=== PATIENT | female | born 1980 | race Caucasian/White ===

== ENCOUNTER 2016-12-05 18:19 | Inpatient (IN) | payer BC, MEDICAID, OTHER ==
--- NOTE | 2016-12-05 20:21 | ED ---
Psych HPI - General Source: patient, RN notes reviewed Mode of arrival: ambulatory <Meche Hardy - Last Filed: 12/05/16 20:19> <Anup Encinas - Last Filed: 12/05/16 22:39> - General Chief Complaint: Psychiatric Symptoms Stated Complaint: MENTAL HEALTH Time Seen by Provider: 12/05/16 20:14 - History of Present Illness Initial Comments: 36-year-old female presents to the emergency department with a chief complaint of what appears to be a manic type episode. Patient had been manic per the family. They state that she is trying at home. Patient states that she has "seen all her teachers and has gained all her knowledge. She states that she is trying to help her family. The patient is talking in circles. Patient denies any suicidal or homicidal ideation. Patient denies any medication taking her any health concerns at this time.Patient denies any recent fever, chills, shortness of breath, chest pain, back pain, abdominal pain, nausea vomiting, numbness or tingling, dysuria or hematuria, constipation or diarrhea, headaches or visual changes, or any other current symptoms. (Mcehe Hardy) - Related Data Home Medications Medication Instructions Recorded Confirmed No Known Home Medications [No 02/11/15 12/05/16 Known Home Medications] Allergies Allergy/AdvReac Type Severity Reaction Status Date / Time No Known Allergies Allergy Verified 12/05/16 20:13 Review of Systems ROS Other: All systems not noted in ROS Statement are negative. <Meche Hardy - Last Filed: 12/05/16 20:19> ROS Other: All systems not noted in ROS Statement are negative. <Anup Encinas - Last Filed: 12/05/16 22:39> ROS Statement: Those systems with pertinent positive or pertinent negative responses have been documented in the HPI. Past Medical History Past Medical History: No Reported History Additional Past Medical History / Comment(s): cervical cysts History of Any Multi-Drug Resistant Organisms: None Reported Past Surgical History: Hernia Repair Additional Past Surgical History / Comment(s): CERVICAL CYSTS REMOVED, Past Psychological History: Depression Smoking Status: Current every day smoker Past Alcohol Use History: Occasional Past Drug Use History: Marijuana <Meche Hardy - Last Filed: 12/05/16 20:19> General Exam Limitations: no limitations General appearance: alert, in no apparent distress ENT exam: Present: normal exam, mucous membranes moist Neck exam: Present: normal inspection. Absent: tenderness, meningismus, lymphadenopathy Respiratory exam: Present: normal lung sounds bilaterally. Absent: respiratory distress, wheezes, rales, rhonchi, stridor Cardiovascular Exam: Present: regular rate, normal rhythm, normal heart sounds. Absent: systolic murmur, diastolic murmur, rubs, gallop, clicks Neurological exam: Present: alert, oriented X3, CN II-XII intact, normal gait, motor sensory deficit, reflexes normal Psychiatric exam: Present: manic Skin exam: Present: warm, dry, intact, normal color. Absent: rash <Meche Hardy - Last Filed: 12/05/16 20:19> Medical Decision Making <Meche Hardy - Last Filed: 12/05/16 20:19> <Anup Encinas - Last Filed: 12/05/16 22:39> - Medical Decision Making 36-year-old male presents emergency department with concern for manic episode. Patient at this time does not appear to be suffering acute medical emergencies. Patient does have a history of depression. This time she is currently evaluated by psychiatry. (Meche Hardy) I receive this patient has a sign out. The patient has been evaluated by behavioral health and they are going to admit her here. Patient requested medication for symptoms and Geodon is ordered (Anup Encinas) - Lab Data Lab Results 12/05/16 Range/Units 20:35 Urine Opiates Screen Not Detected (NotDetected) Ur Oxycodone Screen Not Detected (NotDetected) Urine Methadone Screen Not Detected (NotDetected) Ur Propoxyphene Screen Not Detected (NotDetected) Ur Barbiturates Screen Not Detected (NotDetected) U Tricyclic Antidepress Not Detected (NotDetected) Ur Phencyclidine Scrn Not Detected (NotDetected) Ur Amphetamines Screen Not Detected (NotDetected) U Methamphetamines Scrn Not Detected (NotDetected) U Benzodiazepines Scrn Not Detected (NotDetected) Urine Cocaine Screen Not Detected (NotDetected) U Marijuana (THC) Screen Detected H (NotDetected) Disposition <Meche Hardy - Last Filed: 12/05/16 20:19> <Anup Encinas - Last Filed: 12/05/16 22:39> Clinical Impression: Mood disorder Disposition: ADMITTED IP TO THIS HOSP Condition: Fair
[2016-12-05] MEDS ORDERED: LORazepam 1 MG TAB PO STA (20:38)
[2016-12-05] MEDS ORDERED: ZIPRASIDONE 20 MG CAP PO STA (22:34)
[2016-12-06] MEDS ORDERED: ACETAMINOPHEN TAB 325 MG TAB PO PRN (00:18)
[2016-12-06] MEDS ORDERED: MAGNESIUM HYDROXIDE 2,400 MG/10 ML CUP PO PRN (00:18)
[2016-12-06] MEDS ORDERED: MAG HYDROX/AL HYDROX/SIMETH 30 ML CUP PO PRN (00:18)
[2016-12-06] MEDS ORDERED: ZIPRASIDONE 20 MG VIAL IM PRN (00:18)
[2016-12-06] MEDS ORDERED: LORazepam 2 MG/ML SYRINGE IM PRN (00:22)
[2016-12-06] MEDS: NICOTINE 14MG/24HR PATCH TRANSDERM SCH (10:44)
--- NOTE | 2016-12-06 14:35 | P.HP ---
Psychiatric H&P - . H&P Date: 12/06/16 History & Physical: IDENTIFYING DATA: She is a 36-year-old female who presented voluntarily to the psychiatric unit. HISTORY OF PRESENT ILLNESS: A friend brought her to the ED concerned about her mental health. Lazara told the EPS nurse that she is stressed out and was "reaching out" to people in her community to make them aware" of her daughter's problems at school and her 's legal issues. According to the friend she was disruptive in public; dancing and playing music in her neighborhood. She built a "shrine" on her porch and called friends and family, e.g. clergy, teachers, past teachers, [employer] club members. for assistance. In the ED she was hyperverbal, demonstrated racing thoughts and increased psychomotor activity. Her friend reported that over the last 2 weeks she was sleeping excessively and little to no motivation but since Tuesday12/09/2016 she has not slept and on a "mission" to educate others about her plight. During our interview she denied problems or concerns. She stated that she hasn' t slept for several days but does not feel tired. She was not preoccupied about her daughter or . She mentioned in passing that her had some legal problems. Over the last 4 days she has slept little and did not sleep for the 2 days prior to admission. She admits to being more talkative and having more thoughts and ideas. Her behavior is a clear and distinct change from her usual behavior. She denied excessive involvement in activities that have a high probability of painful consequences such as buying sprees, sexual indiscretions or "foolish" business ventures. She denied psychotic symptoms such as auditory or visual hallucinations, ideas reference, thought insertion, thought or thought control. She denied use of alcohol or drugs with the exception of marijuana. PAST PSYCHIATRIC HISTORY: She denied prior psychiatric hospitalization she denied that she had received past mental health services.. PAST MEDICAL HISTORY: She denied history of medical problems. ALLERGIES: No known ALLERGIES. SUBSTANCE USE HISTORY: She smokes marijuana "occasionally" she described passive history of "daily use". She denied use of other drugs such as heroin, cocaine, crack cocaine, methamphetamine, MDMA, hallucinogenic's and oral opioid pain medicines, sedatives and hypnotics.. FAMILY PSYCHIATRIC/SUBSTANCE USE HISTORY: She states her brother has "mental problems". She is unaware of his diagnosis.. LEGAL HISTORY: He denied a history of legal problems.. SOCIAL HISTORY: She is born and raised by an intact family. She has 1 older brother and sister. Her parents are . Her mother last year while living with her sister in [place]. She is angry with her brother because he did not arrange a services. When she arrived [place] he had given away her mother's possessions and donate her mother's body to a medical school. She has 1 daughter, age 10, out of wedlock. She's been for 4 years; she and her have lived together for 8 years. She graduated high school and attended a General acute hospital college. She is currently unemployed and living with her in [facility]. They moved from [place] to [place] 4 years ago. She described close and supportive relationship with her . Her 's only legal problems are traffic violations. MENTAL STATUS EXAM: She presented as a casually dressed and groomed 36-year-old woman who looked younger than his stated age. She had a normal posture. She maintained eye contact and attended to the interview. She had no distinguishing features or prominent physical abnormalities. She had a bright almost elated facial expression. She was alert and oriented to person, place and time. She was restless and distractible. She had pressured speech and flight of ideas. Her affect was elevated and at times inappropriate. She denied suicidal ideation or wishes. She denied homicidal ideation. She denied depressive cognitions such as hopelessness, helplessness or worthlessness. She denied obsessions or ruminations. She did not express ideas reference or paranoid ideation. Her thinking was abstract and her associations were coherent and logical. She did not demonstrate clang associations, neologisms or perseveration. She denied hallucinations and did not appear to be responding to internal stimuli. STRENGTHS: Stable and supportive marriage, stable housing, stable income, community support WEAKNESSES: New-onset of mood disorder, family history of mental illness. IMPRESSION: She is a 36-year-old woman who does not have a history of a mental health problem. She presented with signs and symptoms of hypomania that developed following a period of depression. There is no evidence of psychotic symptoms. The change is not related to medical illnesses or the abuse of drugs or alcohol. She should best be treated inpatient basis with a combination of psychopharmacology and multimodal therapy. PRINCIPLE DIAGNOSIS: Bipolar 2 disorder RECOMMENDATION: Continue treatment on the inpatient psychiatric unit. We discussed treatment with mood stabilizers including lithium, Depakote, Lamictal and various antipsychotics. She consented to a trial of Abilify and restart Abilify 5 mg daily. Evaluate clinical clinical status response to treatment on a daily basis. Obtain lateral information from her . Encourage participation in therapeutic groups and activities. Allergies Allergy/AdvReac Type Severity Reaction Status Date / Time No Known Allergies Allergy Verified 12/05/16 20:13 Vital Signs Temp 96.9 F L 12/06/16 00:24 Pulse 108 H 12/06/16 00:24 Resp 16 12/06/16 00:24 BP 147/83 12/06/16 00:24 Pulse Ox 99 12/06/16 00:00 Intake & Output 12/05/16 12/06/16 12/06/16 18:59 06:59 18:59 Weight 63.503 kg Laboratory Last Values Urine HCG, Qual Not Detected (Not Detectd) 12/05/16 20:35 Urine Opiates Screen Not Detected (NotDetected) 12/05/16 20:35 Ur Oxycodone Screen Not Detected (NotDetected) 12/05/16 20:35 Urine Methadone Screen Not Detected (NotDetected) 12/05/16 20:35 Ur Propoxyphene Screen Not Detected (NotDetected) 12/05/16 20:35 Ur Barbiturates Screen Not Detected (NotDetected) 12/05/16 20:35 U Tricyclic Antidepress Not Detected (NotDetected) 12/05/16 20:35 Ur Phencyclidine Scrn Not Detected (NotDetected) 12/05/16 20:35 Ur Amphetamines Screen Not Detected (NotDetected) 12/05/16 20:35 U Methamphetamines Scrn Not Detected (NotDetected) 12/05/16 20:35 U Benzodiazepines Scrn Not Detected (NotDetected) 12/05/16 20:35 Urine Cocaine Screen Not Detected (NotDetected) 12/05/16 20:35 U Marijuana (THC) Screen Detected (NotDetected) H 12/05/16 20:35 12/06/16 08:33 12/06/16 14:12
[2016-12-06] MEDS: LORazepam 1 MG TAB PO PRN ×2 (14:53→23:45)
--- NOTE | 2016-12-06 16:02 | P.CONS ---
History of Present Illness - Reason for Consult Consult date: 12/06/16 Medical management - History of Present Illness This is a 36-year-old female. Her primary care physician is Dr. Montaño. She has a past medical history for cervical cyst, depression, tobacco use and dependence. Patient presented to [facility] with manic phase. She is history that she has had similar symptoms when she suffered from depression was placed on Prozac. She states she does get chest pain when she takes Prozac. She has also had same symptoms when her mother and father . She gives history that she thinks she and her need to get a divorce and that is why she feels she is having this is symptoms now. Urine drug screen was positive for marijuana. Urine hCG was negative. Review of Systems All systems: negative Constitutional: Denies chills, Denies fever Eyes: denies blurred vision, denies pain Ears, nose, mouth and throat: Denies headache, Denies sore throat Cardiovascular: Denies chest pain, Denies shortness of breath Respiratory: Denies cough Gastrointestinal: Denies abdominal pain, Denies diarrhea, Denies nausea, Denies vomiting Genitourinary: Denies dysuria, Denies hematuria Musculoskeletal: Denies myalgias Integumentary: Denies pruritus, Denies rash Neurological: Denies numbness, Denies weakness Psychiatric: Reports confusion, Reports depression, Reports difficulty concentrating, Reports mood swings, Denies anxiety Endocrine: Denies fatigue, Denies weight change Past Medical History Past Medical History: No Reported History Additional Past Medical History / Comment(s): cervical cysts, seasonal ALLERGIES History of Any Multi-Drug Resistant Organisms: None Reported Past Surgical History: Hernia Repair Additional Past Surgical History / Comment(s): CERVICAL CYSTS REMOVED, Past Psychological History: Depression Smoking Status: Current every day smoker Past Alcohol Use History: Occasional Additional Past Alcohol Use History / Comment(s): Patient is a smoker of one pack per day since she was 19 years of age. She states she drinks alcohol on a rare basis. She states she tried marijuana but it doesn't work and she does not plan to use it. Past Drug Use History: Marijuana - Past Family History Father Additional Family Medical History / Comment(s): Patient's father from pancreatic cancer. Mother Additional Family Medical History / Comment(s): Mother has but patient does not know any details of this. Brother(s) Additional Family Medical History / Comment(s): Patient has 1 brother with no major medical problems. Sister(s) Additional Family Medical History / Comment(s): Patient has one sister that is living. One sister as a baby. Daughter(s) Additional Family Medical History / Comment(s): Patient has one 10-year-old daughter with no major medical problems. Medications and Allergies Home Medications Medication Instructions Recorded Confirmed Type No Known Home Medications [No 02/11/15 12/05/16 History Known Home Medications] Allergies Allergy/AdvReac Type Severity Reaction Status Date / Time No Known Allergies Allergy Verified 12/05/16 20:13 Physical Exam Vitals: Vital Signs Temp Pulse Pulse Resp BP BP Pulse Ox 12/06/16 00:24 96.9 F L 108 H 16 147/83 12/06/16 00:00 98.4 F 110 H 18 135/83 99 Intake and Output 12/05/16 12/06/16 12/06/16 22:59 06:59 14:59 Other: Weight 63.503 kg Gen: This is a 36-year-old female. She is cooperative. Noted flight of ideas and difficulty concentrating. HEENT: Head is atraumatic, normocephalic. Pupils equal, round. Sclerae is anicteric. NECK: Supple. No JVD. No lymphadenopathy. No thyromegaly. LUNGS: Clear to auscultation. No wheezes or rhonchi. No intercostal retractions. HEART: Regular rate and rhythm. No murmur. ABDOMEN: Soft. Bowel sounds are present. No masses. No tenderness. EXTREMITIES: No pedal edema. No calf tenderness. NEUROLOGICAL: Patient is awake, alert and oriented x3. Cranial nerves 2 through 12 are grossly intact. Assessment and Plan Plan: 1. Bipolar disorder. Patient admitted to the mental health unit. Continue current plan of care. 2. Tobacco use and dependence. Patient states she is unable to take Chantix, nicotine patch, nicotine gum. 3. Seasonal ALLERGIES stable. 4. Cervical cyst, stable. Impression and plan of care have been directed as dictated by the signing physician. Trish Coker nurse practitioner acting as scribe for signing physician. Time with Patient: Greater than 30
[2016-12-07] MEDS: LORazepam 1 MG TAB PO PRN ×2 (06:52→19:34)
[2016-12-07] MEDS ORDERED: ARIPiprazole 5 MG TAB PO SCH (09:00)
[2016-12-07] MEDS: NICOTINE 14MG/24HR PATCH TRANSDERM SCH (09:35)
[2016-12-07 10:23] LABS: Basophils # (A) 0.1 k/uL (0-0.2); Basophils % (A) 1 %; CHCM 34.3; Eosinophils # (A) 0.1 k/uL (0-0.7); Eosinophils % (A) 1 %; HCT 40.7 % (34.0-46.0); HDW 2.53; HGB 13.5 gm/dL (11.4-16.0); Luc # (Auto) 0.05; Luc % (Auto) 1; Lymphocytes # (A) 1.2 k/uL (1.0-4.8); Lymphocytes % (A) 12 %; MCH 30.1 pg (25.0-35.0); MCHC 33.2 g/dL (31.0-37.0); MCV 90.9 fL (80.0-100.0); Mean Platelet Volume 7.9; Monocytes # (A) 0.6 k/uL (0-1.0); Monocytes % (A) 6 %; Neutrophils # (A) 8.1 k/uL (1.3-7.7); Neutrophils % (A) 81 %; RBC 4.48 m/uL (3.80-5.40); RDW 12.5 % (11.5-15.5)
[2016-12-07 10:57] LABS: ALT 44 U/L (9-52); AST 23 U/L (14-36); Alkaline Phosphatase 56 U/L (38-126); Anion Gap 12 mmol/L; Blood Urea Nitrogen 7 mg/dL (7-17); Carbon Dioxide 27 mmol/L (22-30); Chloride 104 mmol/L (98-107); Glucose 105 mg/dL (74-99); Non-African American GFR(MDRD) >60 (>60 ml/min/1.73 sqM); Potassium 3.8 mmol/L (3.5-5.1); Sodium 143 mmol/L (137-145); Total Bilirubin 0.6 mg/dL (0.2-1.3); Total Protein 7.9 g/dL (6.3-8.2)
--- NOTE | 2016-12-07 13:46 | P.PN ---
Progress Note - Text SUBJECTIVE: Lazara received her first dose of Abilify 5 mg this morning and complained of dizziness, lightheadedness, shortness of breath and difficulties with her balance. She talked more about her concerns. She is thinking of with her because they have been having relationship difficulties and he is unwilling to meet with a marital counselor. She stated that in the past she has paid his child support because she was afraid that he would be arrested for nonpayment. He remains delinquent on child support payments and does not respond to her pleas to make good on his responsibilities. She is unhappy living in [facility] because she is unable to find employment and her supportive friends and family live in [facility]. Her 10-year-old daughter is currently living with her father in [facility]. She feels comfortable with this arrangement temporarily. OBJECTIVE: She presented as sedated appearing 36-year-old woman who was pleasant on approach. She made eye eye contact and attended to interview. She had a blunted facial expression. She was alert and oriented to person, place and time. She was not restless and displayed no abnormal movements. Her gait was slow and unsteady. She demonstrated pressured speech and some flight of ideas. Her affect was bright almost elated. She denied suicidal ideation or wishes. She denied homicidal ideation. She denied feeling hopeless or helpless. She did not express ideas reference or paranoid ideation. Her thinking was abstract and associations were coherent and goal directed. She did not demonstrate clang associations or neologisms. She denied hallucinations and didn't appear to be responding to internal stimuli. ASSESSMENT: She is experiencing distressing side effects from 5 mg dose of Abilify. She continues to have symptoms of hypomania but she is less hyperverbal and demonstrates less flight of ideas. PLAN: Discontinue Abilify. Begin Seroquel 50 mg at bedtime and titrated according to tolerance and clinical effect. Continue participation in therapeutic groups and activities. Evaluate clinical status response to treatment daily basis.
[2016-12-07] MEDS: cloNIDine HCL 0.1 MG TAB PO PRN (14:39)
[2016-12-07] MEDS ORDERED: QUEtiapine 50 MG TAB PO SCH (21:00)
[2016-12-08 05:36] VITALS: RESP 18
[2016-12-08] MEDS: NICOTINE 14MG/24HR PATCH TRANSDERM SCH (08:40)
--- NOTE | 2016-12-08 15:00 | P.PN ---
Progress Note - Text SUBJECTIVE: Lazara reported restful sleep and denied side effects to the initial dose of Seroquel. She spoke with her yesterday and talked about her expectations if they are to remained . She requests to be discharged and agreed to follow up with the mental health. OBJECTIVE: She was neatly dressed and groomed. She made eye contact and attended to the interview. She had a bright facial expression. She showed no abnormality of psychomotor activity and no abnormal movements. Her affect was bright, stable and appropriate. Her speech was rapid but not pressured. She did not demonstrate flight of ideas. She denied suicidal or ideation or wishes. She denied depressive cognitions such as hopelessness, helplessness or worthlessness. Her thinking was abstract and associations were coherent and logical. She denied hallucinations and did not appear to be responding to internal stimuli. ASSESSMENT: She is much improved from admission with a marked decrease and hypomania. PLAN: Increase Seroquel to 100 mg at bedtime, social work to schedule outpatient mental health services, discharge 12/09/2016.
[2016-12-08] MEDS ORDERED: QUEtiapine 100 MG TAB PO SCH (21:00)
[2016-12-08] MEDS: cloNIDine HCL 0.1 MG TAB PO PRN (22:12)
[2016-12-09 00:36] VITALS: BP 152/101; PULSE 110; TEMP 97.6
[2016-12-09] MEDS: NICOTINE 14MG/24HR PATCH TRANSDERM SCH (10:43)
--- NOTE | 2016-12-09 11:31 | P.DS ---
Providers Date of admission: 12/05/16 22:41 Attending physician: Evan Nielsen MD Consults: 12/06/16 00:18 Consult Physician Routine Consulting Provider: Twila Rudolph Consult Reason/Comments: h&p and medical follow-up Do you want consulting provider notified?: Yes, Notify in am Primary care physician: Linwood Patricia - Discharge Diagnosis(es) (1) Hypomania Current Visit: Yes Status: Resolved Priority: High (2) Bipolar II disorder Current Visit: Yes Status: Chronic Priority: Low Hospital Course: She is a 36-year-old female who presented voluntarily to the psychiatric unit. A friend brought her to the ED concerned about her mental health. Lazara told the EPS nurse that she is stressed out and was "reaching out" to people in her community to make them aware" of her daughter's problems at school and her 's legal issues. According to the friend she was disruptive in public; dancing and playing music in her neighborhood. She built a "shrine" on her porch and called friends and family, e.g. clergy, teachers, past teachers, [employer] club members. for assistance. In the ED she was hyperverbal, demonstrated racing thoughts and increased psychomotor activity. Her friend reported that over the last 2 weeks she was sleeping excessively and little to no motivation but since Tuesday12/09/2016 she has not slept and on a "mission" to educate others about her plight. During our interview she denied problems or concerns. She stated that she hasn' t slept for several days but does not feel tired. She was not preoccupied about her daughter or . She mentioned in passing that her had some legal problems. Over the last 4 days she has slept little and did not sleep for the 2 days prior to admission. She admits to being more talkative and having more thoughts and ideas. Her behavior is a clear and distinct change from her usual behavior. She denied excessive involvement in activities that have a high probability of painful consequences such as buying sprees, sexual indiscretions or "foolish" business ventures. She denied psychotic symptoms such as auditory or visual hallucinations, ideas reference, thought insertion, thought or thought control. She denied use of alcohol or drugs with the exception of marijuana. She denied prior psychiatric hospitalization she denied that she had received past mental health services. She had a bright almost elated facial expression. She was alert and oriented to person, place and time. She was restless and distractible. She had pressured speech and flight of ideas. Her affect was elevated and at times inappropriate. She denied suicidal ideation or wishes. She denied homicidal ideation. She denied depressive cognitions such as hopelessness, helplessness or worthlessness. She denied obsessions or ruminations. She did not express ideas reference or paranoid ideation. Her thinking was abstract and her associations were coherent and logical. She did not demonstrate clang associations, neologisms or perseveration. She denied hallucinations and did not appear to be responding to internal stimuli. We admitted her voluntarily to the psychiatric unit under the care of this keno writer. Provided a biopsychosocial assessment. The independent beauty consultant wort extractor completed the initial physical exam and medical history. The medical diagnoses include tobacco use disorder and seasonal allergies. She demonstrated signs and symptoms of hypomania with markedly elevated mood, restlessness, pressured speech and flight of ideas. She did not express psychotic symptoms such as auditory or visual hallucinations, ideas reference, thought insertion, thought broadcasting or thought control. She was "afraid" of starting lithium, Depakote or Lamictal. She agreed to a trial of Abilify but experienced shortness of breath and racing thoughts with a 5 mg dose. She showed a reduction in hypomanic symptoms with quetiapine at a dose of 100 mg at bedtime. As her mood improved she revealed poor concerns with her marriage and requested referral for outpatient counseling. At the time of discharge she showed no signs of pili or hypomania. She was not psychotic. She denied side effects to the quetiapine. Social work arranged for outpatient mental health services in [facility]. Patient Condition at Discharge: Good Plan - Discharge Summary New Discharge Prescriptions: Nicotine 14Mg/24Hr Patch [Habitrol] 1 patch TRANSDERM DAILY 14 Days QUEtiapine [SEROquel] 100 mg PO HS 30 Days Discharge Medication List Nicotine 14Mg/24Hr Patch [Habitrol] 1 patch TRANSDERM DAILY 14 Days 12/09/16 [Rx ] QUEtiapine [SEROquel] 100 mg PO HS 30 Days 12/09/16 [Rx] Follow up Appointment(s)/Referral(s): Janusz Oseguera [Outside] - 12/13/16 11:00 am ([place] ) Linwood Patricia MD [Primary Care Provider] - 1-2 days Patient Instructions/Handouts: How to Stop Smoking (GEN) Discharge Disposition: HOME SELF-CARE
== END 2016-12-09 11:32 | disposition home or self-care (01) | DRG 885 ==
LOC: EC 18:19 → 3MHU 22:41
PROVIDERS: ADMIT Psychiatry & Neurology Psychiatry; ATTEND Psychiatry & Neurology Psychiatry
DX: F31.81 Bipolar II disorder (principal); F17.200 Nicotine dependence, unspecified, uncomplicated
CPT/HCPCS: 80053; 80306; 81025; 82075; 84443; 85025; 93005; 99285

== ENCOUNTER 2016-12-13 15:57 | Inpatient (IN) | payer MEDICAID, OTHER ==
--- NOTE | 2016-12-13 16:28 | ED ---
General Adult HPI - General Chief complaint: Psychiatric Symptoms Stated complaint: MENTAL HEALTH Time Seen by Provider: 12/13/16 16:03 Source: patient, EMS, RN notes reviewed Mode of arrival: EMS Limitations: no limitations - History of Present Illness Initial comments: Patient 36-year-old female who presents emergency room today by EMS, with chief complaint of wanting mental health evaluation. She does not that she was recently discharged from through us. States she does have a counselor/ therapist that she sees. States that has been having increased racing thoughts. Denies any thoughts of hurting herself or others. Denies any other physical complaints currently. Patient denies any recent fever, chills, shortness of breath, chest pain, back pain, abdominal pain, nausea or vomiting, numbness or tingling, dysuria or hematuria, constipation or diarrhea, headaches or visual changes, or any other complaints. - Related Data Home Medications Medication Instructions Recorded Confirmed Loratadine [Alavert] 10 mg PO DAILY PRN 12/13/16 12/13/16 Previous Rx's Medication Instructions Recorded Nicotine 14Mg/24Hr Patch [Habitrol] 1 patch TRANSDERM DAILY 14 Days 12/09/16 QUEtiapine [SEROquel] 100 mg PO HS 30 Days 12/09/16 Allergies Allergy/AdvReac Type Severity Reaction Status Date / Time No Known Allergies Allergy Verified 12/13/16 16:40 Review of Systems ROS Statement: Those systems with pertinent positive or pertinent negative responses have been documented in the HPI. ROS Other: All systems not noted in ROS Statement are negative. Past Medical History Past Medical History: No Reported History Additional Past Medical History / Comment(s): cervical cysts, seasonal ALLERGIES History of Any Multi-Drug Resistant Organisms: None Reported Past Surgical History: Hernia Repair Additional Past Surgical History / Comment(s): CERVICAL CYSTS REMOVED, Past Psychological History: Depression Smoking Status: Current every day smoker Past Alcohol Use History: Occasional Additional Past Alcohol Use History / Comment(s): Patient is a smoker of one pack per day since she was 19 years of age. She states she drinks alcohol on a rare basis. She states she tried marijuana but it doesn't work and she does not plan to use it. Past Drug Use History: Marijuana - Past Family History Father Additional Family Medical History / Comment(s): Patient's father from pancreatic cancer. Mother Additional Family Medical History / Comment(s): Mother has but patient does not know any details of this. Brother(s) Additional Family Medical History / Comment(s): Patient has 1 brother with no major medical problems. Sister(s) Additional Family Medical History / Comment(s): Patient has one sister that is living. One sister as a baby. Daughter(s) Additional Family Medical History / Comment(s): Patient has one 10-year-old daughter with no major medical problems. General Exam - General Exam Comments Initial Comments: General: The patient is awake and alert, in no distress, and does not appear acutely ill. Eye: Pupils are equal, round and reactive to light, extra-ocular movements are intact. No nystagmus. There is normal conjunctiva bilaterally. No signs of icterus. Ears, nose, mouth and throat: There are moist mucous membranes and no oral lesions. Neck: The neck is supple, there is no tenderness or JVD. Cardiovascular: There is a regular rate and rhythm. No murmur, rub or gallop is appreciated. Respiratory: Lungs are clear to auscultation, respirations are non-labored, breath sounds are equal. No wheezes, stridor, rales, or rhonchi. Musculoskeletal: Normal ROM, no tenderness. Strength 5/5. Sensation intact. Pulses equal bilaterally 2+. Neurological: A&O x 3. CN II-XII intact, There are no obvious motor or sensory deficits. Coordination appears grossly intact. Speech is normal. Skin: Skin is warm and dry and no rashes or lesions are noted. Psychiatric: Cooperative. Limitations: no limitations Course Vital Signs 12/13/16 12/13/16 16:04 17:16 Temperature 98.7 F Pulse Rate 75 Respiratory 18 Rate Blood Pressure 181/109 172/108 O2 Sat by Pulse 98 Oximetry Medical Decision Making - Medical Decision Making Patient seen here in the emergency room by mental. They recommended patient be admitted. - Lab Data Lab Results 12/13/16 12/13/16 Range/Units 16:22 16:22 Urine HCG, Qual Not Detected (Not Detectd) Urine Opiates Screen Not Detected (NotDetected) Ur Oxycodone Screen Not Detected (NotDetected) Urine Methadone Screen Not Detected (NotDetected) Ur Propoxyphene Screen Not Detected (NotDetected) Ur Barbiturates Screen Not Detected (NotDetected) U Tricyclic Antidepress Not Detected (NotDetected) Ur Phencyclidine Scrn Not Detected (NotDetected) Ur Amphetamines Screen Not Detected (NotDetected) U Methamphetamines Scrn Not Detected (NotDetected) U Benzodiazepines Scrn Not Detected (NotDetected) Urine Cocaine Screen Not Detected (NotDetected) U Marijuana (THC) Screen Not Detected (NotDetected) Disposition Clinical Impression: Bipolar II disorder Disposition: HOME SELF-CARE Condition: Good Time of Disposition: 18:06
[2016-12-13] MEDS ORDERED: cloNIDine HCL 0.1 MG TAB PO STA (17:18)
[2016-12-13] MEDS ORDERED: MAGNESIUM HYDROXIDE 2,400 MG/10 ML CUP PO PRN (17:56)
[2016-12-13] MEDS ORDERED: MAG HYDROX/AL HYDROX/SIMETH 30 ML CUP PO PRN (17:56)
[2016-12-13] MEDS ORDERED: ACETAMINOPHEN TAB 325 MG TAB PO PRN (17:56)
[2016-12-13] MEDS ORDERED: LORATADINE 10 MG TAB PO PRN (18:00)
[2016-12-13 18:53] VITALS: BMI 25.0
[2016-12-13 19:35] LABS: Appearance,Urine Clear (Clear); Bacteria,Urine Occasional /hpf; Bilirubin,Urine Negative (Negative); Glucose,Urine (UA) Negative (Negative); Ketones,Urine Negative (Negative); Leukocyte Esterase,Urine Negative (Negative); Mucus,Urine Rare /hpf; Nitrite,Urine Negative (Negative); Particle Count 2906; Protein,Urine Trace (Negative); RBC,Urine 1 /hpf (0-5); Specific Gravity,Urine 1.002 (1.001-1.035); Squamous Epithelial Cell,Urine 2 /hpf (0-4); UA Billing (MACRO vs. MICRO) MICRO; Urobilinogen,Urine <2.0 mg/dL (<2.0); WBC,Urine 1 /hpf (0-5)
[2016-12-13] MEDS: QUEtiapine 100 MG TAB PO SCH (20:28)
[2016-12-13] MEDS ORDERED: OLANZapine 10 MG TAB PO STA (22:16)
[2016-12-13] MEDS ORDERED: OLANZapine 10 MG TAB PO PRN (23:34)
[2016-12-14 07:22] LABS: Basophils # (A) 0.1 k/uL (0-0.2); Basophils % (A) 1 %; CH 30.9; CHCM 33.7; Eosinophils # (A) 0.1 k/uL (0-0.7); Eosinophils % (A) 1 %; HCT 41.4 % (34.0-46.0); HDW 2.34; HGB 13.5 gm/dL (11.4-16.0); Luc # (Auto) 0.17; Luc % (Auto) 2; Lymphocytes # (A) 3.4 k/uL (1.0-4.8); Lymphocytes % (A) 36 %; MCH 30.1 pg (25.0-35.0); MCHC 32.7 g/dL (31.0-37.0); MCV 92.1 fL (80.0-100.0); Mean Platelet Volume 7.6; Monocytes # (A) 0.5 k/uL (0-1.0); Monocytes % (A) 6 %; Neutrophils # (A) 5.2 k/uL (1.3-7.7); Neutrophils % (A) 55 %; RBC 4.49 m/uL (3.80-5.40); RDW 12.6 % (11.5-15.5); WBC 9.5 k/uL (3.8-10.6); WBC (Perox) 10.04
[2016-12-14 07:44] LABS: ALT 38 U/L (9-52); AST 17 U/L (14-36); Alkaline Phosphatase 48 U/L (38-126); Anion Gap 11 mmol/L; Blood Urea Nitrogen 7 mg/dL (7-17); Calcium 9.9 mg/dL (8.4-10.2); Carbon Dioxide 26 mmol/L (22-30); Chloride 107 mmol/L (98-107); Glucose 85 mg/dL (74-99); Non-African American GFR(MDRD) >60 (>60 ml/min/1.73 sqM); Potassium 4.3 mmol/L (3.5-5.1); Sodium 144 mmol/L (137-145); Total Bilirubin 0.6 mg/dL (0.2-1.3); Total Protein 7.2 g/dL (6.3-8.2)
--- NOTE | 2016-12-14 08:11 | HP ---
DATE OF ADMISSION: 12/13/2016 IDENTIFYING DATA: The patient is a 36-year-old female, 1980. She resides with her . She had a recent psychiatric hospitalization at this facility from December 06 with discharge December 09. CHIEF COMPLAINT: The patient was admitted due to agitation, disruptive behavior at school, feeling she was in a panic and unable to control her reaction. She was unable to care for her child and requested school staff to find a family member to take care of the child because she needed to go to the hospital. She was depressed, anxious, distressed. HISTORY OF PRESENTING ILLNESS: The patient has significant nursing home psychiatric issues. She apparently has not had previous psychiatric hospitalization or mental health care until recently. She presented December 06 with manic symptoms including disruptive and disorganized behavior, excessive energy, decreased need for sleep, racing thoughts, increased psychomotor activity. She was diagnosed with bipolar type II disorder. Discharge medications included to Seroquel 100 mg a day. I refer the reader to the admission note and discharge summary of Dr. Nielsen of December 06 and December 09, 2016, respectively. Patient notes that since discharge she has been home. She has continued to be distressed. She went to school today at the end of the school day to mushroom picker her daughter. Apparently police were thee because there were some issues with her having legal problems. She was not clear about details. She became agitated and distressed and panicky, which led to her hospitalization. The patient was not able to provide very clear information about events over the last few days. She suggested that she was stressed over issues with her as well as some personal health issues although she really could not provide any more information than that. She is admitted for further evaluation. SUBSTANCE USE HISTORY: As per Dr. Nielsen, she smokes marijuana "occasionally" and denied use of other substance use issues. MEDICAL HISTORY: Patient denied any significant or chronic general health conditions. REVIEW OF SYSTEMS: Unremarkable. PHYSICAL EXAM: As per the medical consultation of December 06 of Ms. Sheela NP and medical consultation for this admission. MENTAL STATUS EXAM: Patient was in the emergency room. She was resting, though as soon as the light came on she opened her eyes, she started talking. She was disorganized in her thoughts. She rambled quite a bit. She would give a lot of extraneous details to straightforward questions. It was difficult to follow her train of thought. She was not able to provide much information in regards to her immediate events leading to her hospitalization. Her affect was intense. She had an elevated mood and appeared to be in a hypomanic state. There was no immediate evidence for thought disorder. She did not make any statements in regards to harm to self or others. On cognitive exam, the patient was able to cooperate to answer formal cognitive questions. She appeared to be oriented to her immediate environment. Strength and weaknesses as per Dr. Nielsen's admission note. ASSESSMENT: This 36-year-old female is readmitted due to apparent hypomanic symptoms. Psychosocial stressors are unclear. It is noted that she left school at 4:00 p.m. to come to the hospital while her 10-year-old daughter was at school anticipating being picked up to go home. From what the patient told me she only communicated to the teacher that they should contact some other family member, though the patient said she did not provide any further information to the school than that. It is unclear what the daughter's status is though we will make efforts to contact school and make a referral to protective services if appropriate. DIAGNOSES: 1. Bipolar affective disorder, manic phase. 2. Marijuana abuse. 3. Tobacco dependence. RECOMMENDATIONS: Patient will be admitted for comprehensive medical, psychiatric and psychosocial evaluation. We will make efforts to engage the patient in individual and group therapeutic activities. I will start the patient on Zyprexa 10 mg 3 times a day. I will also continue her current dose of Seroquel 100 mg at bedtime. We will make contact with the school or family to clarify the concerns relating to her 10-year-old daughter. Will get further input from appropriate persons in her support network. Will coordinate with outpatient resources for discharge planning.
[2016-12-14] MEDS: OLANZapine 10 MG TAB PO SCH ×3 (08:36→21:25)
[2016-12-14] MEDS: NICOTINE 14MG/24HR PATCH TRANSDERM SCH ×2 (11:07→16:45)
--- NOTE | 2016-12-14 19:17 | CONS ---
DATE OF CONSULTATION: REASON FOR CONSULTATION: Medical clearance. Patient is a very pleasant 36-year-old female admitted for manic episodes. Patient is clinically doing well. Patient denied any fever or chills. Patient denied any nausea, vomiting, dysuria. Patient denied any cough, runny nose. REVIEW OF SYSTEMS: CONSTITUTIONAL: No fever, no malaise, no fatigue. HEENT: No recent visual problems or hearing problems. Denied any sore throat. CARDIOVASCULAR: No chest pain, orthopnea, PND, no palpitations, no syncope. PULMONARY: No shortness of breath, no cough, no hemoptysis. GASTROINTESTINAL: No diarrhea, no nausea, no vomiting, no abdominal pain. Normoactive bowel sounds. NEUROLOGICAL: No headaches, no weakness, no numbness. HEMATOLOGICAL: Denies any bleeding or petechiae. GENITOURINARY: Denies any burning micturition, frequency, or urgency. MUSCULOSKELETAL/RHEUMATOLOGICAL: Denies any joint pain, swelling, or any muscle pain. ENDOCRINE: Denies any polyuria or polydipsia. The rest of the 14 point review of systems is negative. PAST MEDICAL HISTORY: Cervical cyst removal and hernia repair in the past. Depression. SOCIAL HISTORY: Patient does smoke; has been smoking since 19 years of age. Denied any alcohol abuse. Occasional use of marijuana. FAMILY HISTORY: Significant for pancreatic cancer in father. PHYSICAL EXAMINATION: VITAL SIGNS: Temperature 98.1, pulse of 92, respiratory rate of 18. Blood pressure 132/81. Saturating at 97% on room air. GENERAL: The patient is alert and oriented x3, not in any acute distress. Well developed, well nourished. HEENT: Pupils are round and equally reacting to light. EOMI. No scleral icterus. No conjunctival pallor. Normocephalic, atraumatic. No pharyngeal erythema. No thyromegaly. CARDIOVASCULAR: S1 and S2 present. No murmurs, rubs, or gallops. PULMONARY: Chest is clear to auscultation, no wheezing or crackles. ABDOMEN: Soft, nontender, nondistended, normoactive bowel sounds. No palpable organomegaly. MUSCULOSKELETAL: No joint swelling or deformity. EXTREMITIES: No cyanosis, clubbing, or pedal edema. NEUROLOGICAL: Gross neurological examination did not reveal any focal deficits. SKIN: No rashes. PSYCHIATRIC: Defer to psychiatric evaluation. Laboratory data was reviewed. ASSESSMENT AND PLAN: 1. Manic episodes. Management as per primary service. 2. Nicotine abuse. Counseling was provided. 3. Marijuana abuse. Counseling was provided. There are no further recommendations from my perspective. Patient has trace protein in the urine and trace blood in the urine, which needs to be repeated as an outpatient. Beyond that, I do not have any further recommendations. I will sign off at this point of time. Call us back if needed.
--- NOTE | 2016-12-14 19:53 | PN ---
DATE OF SERVICE: 12/14/2016 CHIEF COMPLAINT: The patient was admitted due to agitation, disruptive behavior at school, feeling she was in a panic and unable to control her reaction. She was unable to care for her child and requested school staff to find a family member to take care of the child because she needed to go to the hospital. She was depressed, anxious, distressed. INTERVAL HISTORY: Patient has been doing fair. She was quite activated on the unit yesterday evening. She received a p.r.n. dose of Zyprexa 10 mg which seemss to help. She was able to present herself in a little more calm manner. She continued to be somewhat hyperverbal. She slept from about 1:00 a.m. into the morning time. She does tend to be somewhat hyperactive. She is also hyperverbal. Her mood is mild to moderately euphoric. She can be disorganized in her thoughts. She did make a contact with her ex-, where her daughter currently is at. She has made various comments today about being distressed with the idea that her daughter is with her ex-, though on the other hand she essentially left her daughter at school at 4:00 in the afternoon and did not herself make any plans to provide for someone to watch over the daughter or to help determine where she would be going home after school. The patient still is focused on the idea that her has legal issues because he is driving while not have a service parts driver's license. Patient also is focused on physical symptoms. She says she has had some ups and downs with irritable bowel syndrome and also believes she may have a cervical cyst, which is something she has been trouble with before. She has been attending groups. She has not had change in her general health. She tolerates her psychotropic medications. MENTAL STATUS: Patient was in the day area. She was somewhat activated in psychomotor activity. She rambled at length. She was able to be brought back to the subject at hand. Her affect was expansive, her mood moderately elevated. There was no indication of thought disorder. She did not appear to be distressed. ASSESSMENT: I will continue the current diagnosis and treatment plan. Will continue psychotropic medications the same. We will focus on stabilization and discharge planning. Will coordinate with outpatient resources for followup care. The patient continues to be moderately symptomatic with bipolar pili.
[2016-12-14] MEDS: QUEtiapine 100 MG TAB PO SCH (21:25)
[2016-12-15] MEDS: OLANZapine 10 MG TAB PO SCH ×3 (09:19→21:35)
[2016-12-15] MEDS: NICOTINE 14MG/24HR PATCH TRANSDERM SCH (09:19)
--- NOTE | 2016-12-15 19:51 | PN ---
PSYCHIATRIC PROGRESS NOTE DATE OF SERVICE: 12/15/2016 CHIEF COMPLAINT: The patient was admitted due to agitation, disruptive behavior at school, feeling she was in a panic and unable to control her reaction. She was unable to care for her child and requested school staff to find a family member to take care of the child because she needed to go to the hospital. She was depressed, anxious, distressed. INTERVAL HISTORY: Patient has been doing fair. She had a quiet evening last night. She was fairly active as far as getting herself around the unit, interacting with others. She slept about 5 hours. Today she has been up and about. She attends groups. She tends to be hyperverbal. She often will ramble and has difficulty staying on track. She wanders about the unit. She seems to have a high energy state. She has been cooperative. She has not had change in her general health. She tolerates her psychotropic medications. Overall staff feel that she is just a little clearer in her thoughts that she has been. MENTAL STATUS: Patient was in the day area. She gave fairly good eye contact. Psychomotor activity was restless. Speech was clear, though she tended to ramble and often would start talking about things disconnected from the subject at hand. She could be redirected back to the topic. Her affect was intense, her mood expansive. She appeared to be in a hypomanic manic state. She was not distressed. There was no indication of thought disorder. ASSESSMENT: I will continue the current diagnosis and treatment plan. Continue psychotropic medications the same. Patient may be showing some early signs of responding to medications. We will continue to focus on stabilization. We will coordinate with outpatient resources for discharge planning.
[2016-12-15] MEDS: QUEtiapine 100 MG TAB PO SCH (21:35)
[2016-12-16] MEDS: NICOTINE 14MG/24HR PATCH TRANSDERM SCH ×2 (09:47→16:16)
[2016-12-16] MEDS: OLANZapine 10 MG TAB PO SCH (09:48)
--- NOTE | 2016-12-16 11:01 | PN ---
DATE OF SERVICE: 12/16/2016 CHIEF COMPLAINT: The patient was admitted due to agitation, disruptive behavior at school, feeling she was in a panic and unable to control her reaction. She was unable to care for her child and requested school staff to find a family member to take care of the child because she needed to go to the hospital. She was depressed, anxious, distressed. INTERVAL HISTORY: Patient has been doing fair. She was up and about last evening. She comes out in the day area. She interacts with others. She attends groups. She can tend to be hyperverbal and easily distracted. Overall she seems to be making a little progress in better containment of some of these symptoms. She had some difficulty falling asleep, though otherwise slept well through the night. She has been up and about. She tends to wander about the unit. She has been attending groups. She continues to be somewhat hyperverbal and scattered in her thoughts, though overall she seems to be making some progress in this regard. She was more focused today on needing to take care of specific issues in her home life. She seems to have been able to sort through some of the stress issues and is making some plans to deal with issues relating to 1) her and 2) getting her daughter back to school. She seems a little less distressed overall about these issues, and seems more able to problem solve. Her mood continues to be somewhat elevated. She has not had change in her general health. She tolerates her psychotropic medications. MENTAL STATUS: Patient was in the day area. She gave good eye contact. Psychomotor activity was a little restless. Speech was clear. She answered questions with direct responses. Sometimes she tended to ramble. She was able to be brought back on track to the conversation. Her affect was mildly intense. Her mood somewhat elevated. There was no indication of thought disorder. She did not appear to be distressed. ASSESSMENT: I will continue the current diagnosis and treatment plan. Will continue psychotropic medications the same. I will discontinue Seroquel and start the patient on trazodone 100 mg at bedtime. I will change her Zyprexa from 10 mg 3 times a day to 10 mg in the morning, 20 mg at bedtime. I discussed discharge planning issues. We also talked about how she can manage some of the home issues while she continues her hospital stay. We will coordinate with [facility] for followup care.
[2016-12-16] MEDS ORDERED: traZODone HCL 100 MG TAB PO SCH (21:00)
[2016-12-16] MEDS ORDERED: OLANZapine 10 MG TAB PO SCH (21:00)
[2016-12-17 06:34] VITALS: BP 145/66; PULSE 97; RESP 16; TEMP 97.9
[2016-12-17] MEDS ORDERED: OLANZapine 10 MG TAB PO SCH (09:00)
[2016-12-17] MEDS: NICOTINE 14MG/24HR PATCH TRANSDERM SCH (10:33)
--- NOTE | 2016-12-18 13:19 | DS ---
DATE OF ADMISSION: 12/13/2016 DATE OF DISCHARGE: 12/17/2016 ADMISSION AND DISCHARGE DIAGNOSES: 1. Bipolar affective disorder, manic phase. 2. Marijuana abuse. 3. Tobacco dependence. HISTORY OF PRESENTING ILLNESS: The patient was admitted due to agitation and disruptive behavior at school. When she went to chicken picker her daughter at the end of the school day, she had a panic attack and was unable to control her reaction. She was unable to care for her child. She was anxious and distressed. She has a long history of psychiatric issues reportedly. There have been no prior psychiatric hospitalizations. There been no mental health interventions recently. The patient went from school where she was having panic attack to the emergency room. In the emergency room she had disruptive and disorganized behavior or excessive energy, racing thoughts, and increased psychomotor activity. She reported poor sleep. She had been on Seroquel 100 mg a day. She presented December 06 to the hospital and was followed by Dr. Nielsen. She had a three-day admission. Patient reported significant stress over legal issues that her has apparently relating to driving on a suspended license. she was reporting "occasional" use of marijuana. No other substance use. She was admitted for further evaluation. PAST MEDICAL HISTORY: Unremarkable. Further medical history, review of systems and physical exam as per medical consultation of Dr. Morrow. MENTAL STATUS EXAM: The patient was seen in the emergency room. She was a disorganized in her thoughts. She rambled quite a bit. She would give much extraneous details to straightforward questions. It was difficult to follow her train of thought. She was not able to provide much information relating to the events leading up to her hospitalization. Affect was intense. Mood elevated. She appeared hypomanic. There was no immediate evidence of thought disorder. She made no statements regarding harm to self or others. On cognitive exam, the patient was not able to cooperate with formal cognitive questions. She appeared to be oriented to her immediate environment. DIAGNOSTIC STUDIES: CBC and that comprehensive metabolic profile were unremarkable. Hemoglobin 13.5. MCV 92, glucose 85, creatinine 0.7. TSH 3.4. Urinalysis unremarkable. Urine drug screen was negative. COURSE OF HOSPITALIZATION: The patient was admitted for comprehensive medical, psychiatric and psychosocial evaluation. We made efforts to engage the patient in individual and group therapeutic activities. She was started on Zyprexa 10 mg twice a day and trazodone 100 mg at bedtime. The patient was generally cooperative with care. Throughout her hospitalization she was showing manic to hypomanic symptoms. She would wander about the unit. She would excessively. She had flight of ideas and loose association. Her mood was euphoric. Her affect expect expansive. She attended groups. On a day-to-day basis she showed gradual reduction in manic symptoms. Early on in groups she would be quite hyperverbal and disorganized in her thoughts. Each day when seen in groups or with individual contacts she was a little more ordered and organized in her thoughts. She was able to have appropriate conversations in regards to discharge planning. One issue was that her daughter had gone from school when she came to the hospital and went with the daughter's father who lives 2 hours away. The daughter has not been in school. The patient and did have some telephone conversations. Apparently there was some initial animosity between them. Though the patient was reporting that toward the end of the hospital stay she was able to have a fairly reasonable conversation in terms of planning for the daughter to return home and get back to school. The patient slept fairly well. She was able to engage in productive conversations regarding discharge planning. CONDITION AT DISCHARGE: Patient was stable. Her mood was in the more normal range. There was not clear mood elevation. Other manic symptoms were substantially reduced. The patient's thought process was clear. She voiced no thoughts of harm to self or others. She tolerated her medications well. RECOMMENDATIONS AND FOLLOW-UP: The patient is discharged to home. Discharge medications: Zyprexa 20 mg at bedtime and trazodone 100 mg at bedtime. She has a follow-up appointment at [facility] December 23 at 1:00 p.m. She was advised to see her primary care physician, Dr. Patricia in 1 to 2 days. We addressed issues of smoking cessation and stress management.
== END 2016-12-17 13:30 | disposition home or self-care (01) | DRG 885 ==
LOC: EC 15:57 → 3MHU 17:42
PROVIDERS: ADMIT Psychiatry & Neurology Psychiatry; ATTEND Psychiatry & Neurology Psychiatry
DX: F31.81 Bipolar II disorder (principal); F17.200 Nicotine dependence, unspecified, uncomplicated; F12.10 Cannabis abuse, uncomplicated; K58.9 Irritable bowel syndrome, unspecified
CPT/HCPCS: 80053; 80306; 81001; 81025; 82075; 84443; 85025; 99285

== ENCOUNTER → 2018-01-10 | Outpatient (CLI) | payer OTHER ==
--- NOTE | 2018-01-10 10:24 | US ---
EXAMINATION TYPE: US abdomen limited DATE OF EXAM: 01/10/2018 COMPARISON: CT CLINICAL HISTORY: R10.11 Right upper quadrant pain. Pt states RUQ pain and heartburn EXAM MEASUREMENTS: Liver Length: 14.4 cm Gallbladder Wall: 0.2 cm CBD: 0.3 cm Right Kidney: 9.9 x 4.8 x 5.0 cm Pancreas: wnl Liver: wnl Gallbladder: wnl Evidence for sonographic Salcedo's sign: No CBD: wnl Right Kidney: wnl No abnormality visualized to account for pt's symptoms IMPRESSION: No sonographic evidence of cholelithiasis or acute cholecystitis. Hepatic echotexture is unremarkable.
== END | disposition home or self-care (01) ==
LOC: RADUSWWP 09:39
PROVIDERS: ATTEND Pediatrics
DX: R10.11 Right upper quadrant pain (principal)
CPT/HCPCS: 76705

== ENCOUNTER → 2018-01-19 | Outpatient (CLI) | payer OTHER ==
--- NOTE | 2018-01-19 12:00 | XR ---
EXAMINATION TYPE: XR abdomen 2V DATE OF EXAM: 01/19/2018 COMPARISON: NONE HISTORY: Constipation TECHNIQUE: Two view abdominal series FINDINGS: The osseous structures are intact. The bowel gas pattern is nonspecific. Lung bases are clear. Nons pecific calcifications in the pelvis. Chronic acetabular labral tear on the left suspected. Extensive retained fecal debris. IMPRESSION: 1. Nonspecific abdomen. Extensive retained fecal debris correlate for constipation.
== END | disposition home or self-care (01) ==
LOC: RADXRMAIN 11:33
PROVIDERS: ATTEND Pediatrics
DX: K59.00 Constipation, unspecified (principal)
CPT/HCPCS: 74019

== ENCOUNTER 2018-09-09 08:33 | Emergency (ER) | payer OTHER ==
[2018-09-09] MEDS ORDERED: SODIUM CHLORIDE 0.9% 1,000 ML IV STA (08:58)
[2018-09-09] MEDS ORDERED: KETOROLAC 30 MG/ML 1 ML VIAL IVP STA (09:01)
--- NOTE | 2018-09-09 09:10 | ED ---
General Adult HPI - General Chief complaint: Abdominal Pain Stated complaint: Abd.pain Source: patient, RN notes reviewed, old records reviewed Mode of arrival: ambulatory Limitations: no limitations - History of Present Illness Initial comments: 38-year-old female patient with a history of cervical cysts presents to ED with 9 days of left lower quadrant and suprapubic abdominal pain. Patient states that the abdominal pain began in correlation with onset of her menses 9 days ago. The pain is described as throbbing, cramping, with intermittent bouts of "tearing" pain all of which have been waxing and waning since the onset of her menses 9 days ago. Patient has baseline abdominal pain/cramping with her menses which she normally controls with Midol. Patient experienced some relief with Midol, however states that this pain is worse than normal. Pt has a history of cervical cysts, states that this pain is similar - is up to date with Vertro screening/exams. Quality and quantity of patient's menses have been at her baseline. Patient had 1 episode of nonbloody diarrhea yesterday that resolved. Systemic: Pt denies fatigue, myalgia, fever/chills, rash. Pt denies weakness, night sweats, weight loss. Neuro: Pt denies headache, visual disturbances, syncope or pre-syncope. HEENT: Pt denies ocular discharge or irritation, otalgia, rhinorrhea, pharyngitis or notable lymphadenopathy. Cardiopulmonary: Pt denies chest pain, SOB, heart palpitations, dyspnea on exertion. Abdominal/GI: Pt denies n/v/d. : Pt denies dysuria, burning w/ urination, frequency/urgency. Denies new onset urinary or bowel incontinence. MSK: Pt denies myalgia, loss of strength or function in extremities. - Related Data Previous Rx's Medication Instructions Recorded OLANZapine [ZyPREXA] 20 mg PO HS 30 Days tab 12/17/16 traZODone HCL [Desyrel] 100 mg PO HS 30 Days tab 12/17/16 Allergies Allergy/AdvReac Type Severity Reaction Status Date / Time No Known Allergies Allergy Verified 09/09/18 08:35 Review of Systems ROS Statement: Those systems with pertinent positive or pertinent negative responses have been documented in the HPI. ROS Other: All systems not noted in ROS Statement are negative. Past Medical History Past Medical History: No Reported History Additional Past Medical History / Comment(s): cervical cysts, seasonal ALLERGIES History of Any Multi-Drug Resistant Organisms: None Reported Past Surgical History: Hernia Repair Additional Past Surgical History / Comment(s): CERVICAL CYSTS REMOVED, Past Psychological History: Depression Smoking Status: Current every day smoker Past Alcohol Use History: None Reported Past Drug Use History: None Reported - Past Family History Father Additional Family Medical History / Comment(s): Patient's father from pancreatic cancer. Mother Additional Family Medical History / Comment(s): Mother has but patient does not know any details of this. Brother(s) Additional Family Medical History / Comment(s): Patient has 1 brother with no major medical problems. Sister(s) Additional Family Medical History / Comment(s): Patient has one sister that is living. One sister as a baby. Daughter(s) Additional Family Medical History / Comment(s): Patient has one 10-year-old daughter with no major medical problems. General Exam - General Exam Comments Initial Comments: Constitutional: NAD, AOX3, Pt has pleasant affect. HEENT: NC/AT, trachea midline, neck supple, no lymphadenopathy. Posterior pharynx non erythematous, without exudates. External ears appear normal, without discharge. Mucous membranes moist. Eyes PERRLA, EOM intact. There is no scleral icterus. No pallor noted. Cardiopulmonary: RRR, no murmurs, rubs or gallops, no JVD noted. Lungs CTAB in anterior and posterior hope. No peripheral edema. Abdominal exam: Abdomen soft and non-distended. Abdomen tender to palpation suprapubically and left lower quadrant. No guarding, rigidity, rebound tenderness. No ecchymoses noted. No tenderness at McBurney's point. CVA tenderness negative. Bowel sounds active in LLQ. No hepatosplenomegaly. Neuro: CN II-XII grossly intact. Gynecologic: Mucosa pink, no cervical irritation, erythema, ulcers or discharge noted. Limitations: no limitations Course Vital Signs 09/09/18 08:36 Temperature 97.4 F L Pulse Rate 91 Respiratory 18 Rate Blood Pressure 145/102 O2 Sat by Pulse 99 Oximetry Medical Decision Making - Medical Decision Making 38-year-old female patient presents to ED with left lower quadrant and suprapubic abdominal pain in correlation with her menses. The pain has been going on for 9 days. The investigations into intra-abdominal pathology report including amylase/lipase, lactate acid, CBC/CMP, UA - all of which were unremarkable. An abdominal pelvis CT was conducted which displayed a cervical prominence. A pelvic exam was done conducted, which did not display gross pathology, patient had mild cervical tenderness. A pelvic ultrasound was then obtained, which displayed multiple cysts, and a likely fibroid uterus. The cervical cysts are likely the cause of the patients pain. The patient has a history of similar cysts, of which she has had multiple removed. Discussed results with patient, who will follow up with both PCP and patient transition specialist. Patient declined a prescription for outpatient analgesia and will control symptoms with OTC NSAID's. Patient to return to ED if symptoms worsen or new symptoms develop. - Lab Data Result diagrams: 09/09/18 09:19 09/09/18 09:19 Lab Results 09/09/18 09/09/18 09/09/18 Range/Units 09:19 09:19 09:19 WBC (3.8-10.6) k/uL RBC (3.80-5.40) m/uL Hgb (11.4-16.0) gm/dL Hct (34.0-46.0) % MCV (80.0-100.0) fL MCH (25.0-35.0) pg MCHC (31.0-37.0) g/dL RDW (11.5-15.5) % Plt Count (150-450) k/uL Neutrophils % % Lymphocytes % % Monocytes % % Eosinophils % % Basophils % % Neutrophils # (1.3-7.7) k/uL Lymphocytes # (1.0-4.8) k/uL Monocytes # (0-1.0) k/uL Eosinophils # (0-0.7) k/uL Basophils # (0-0.2) k/uL Sodium 141 (137-145) mmol/L Potassium 3.9 (3.5-5.1) mmol/L Chloride 108 H (98-107) mmol/L Carbon Dioxide 25 (22-30) mmol/L Anion Gap 8 mmol/L BUN 9 (7-17) mg/dL Creatinine 0.68 (0.52-1.04) mg/dL Est GFR (CKD-EPI)AfAm >90 (>60 ml/min/1.73 sqM) Est GFR (CKD-EPI)NonAf >90 (>60 ml/min/1.73 sqM) Glucose 77 (74-99) mg/dL Plasma Lactic Acid Mundo (0.7-2.0) mmol/L Calcium 9.5 (8.4-10.2) mg/dL Total Bilirubin 0.3 (0.2-1.3) mg/dL AST 15 (14-36) U/L ALT 15 (9-52) U/L Alkaline Phosphatase 45 (38-126) U/L Total Protein 7.5 (6.3-8.2) g/dL Albumin 4.3 (3.5-5.0) g/dL Amylase 81 (30-110) U/L Lipase 200 (23-300) U/L Urine Color Yellow Urine Appearance Cloudy H (Clear) Urine pH 5.5 (5.0-8.0) Ur Specific [place] 1.024 (1.001-1.035) Urine Protein Trace H (Negative) Urine Glucose (UA) Negative (Negative) Urine Ketones Negative (Negative) Urine Blood Large H (Negative) Urine Nitrite Negative (Negative) Urine Bilirubin Negative (Negative) Urine Urobilinogen <2.0 (<2.0) mg/dL Ur Leukocyte Esterase Trace H (Negative) Urine RBC 32 H (0-5) /hpf Urine WBC 4 (0-5) /hpf Ur Squamous Epith Cells 14 H (0-4) /hpf Urine Mucus Many H (None) /hpf Urine HCG, Qual Not Detected (Not Detectd) 09/09/18 09/09/18 Range/Units 09:19 09:19 WBC 8.1 (3.8-10.6) k/uL RBC 4.52 (3.80-5.40) m/uL Hgb 13.7 (11.4-16.0) gm/dL Hct 41.6 (34.0-46.0) % MCV 92.2 (80.0-100.0) fL MCH 30.4 (25.0-35.0) pg MCHC 33.0 (31.0-37.0) g/dL RDW 12.6 (11.5-15.5) % Plt Count 249 (150-450) k/uL Neutrophils % 63 % Lymphocytes % 24 % Monocytes % 5 % Eosinophils % 6 % Basophils % 1 % Neutrophils # 5.1 (1.3-7.7) k/uL Lymphocytes # 2.0 (1.0-4.8) k/uL Monocytes # 0.4 (0-1.0) k/uL Eosinophils # 0.5 (0-0.7) k/uL Basophils # 0.1 (0-0.2) k/uL Sodium (137-145) mmol/L Potassium (3.5-5.1) mmol/L Chloride (98-107) mmol/L Carbon Dioxide (22-30) mmol/L Anion Gap mmol/L BUN (7-17) mg/dL Creatinine (0.52-1.04) mg/dL Est GFR (CKD-EPI)AfAm (>60 ml/min/1.73 sqM) Est GFR (CKD-EPI)NonAf (>60 ml/min/1.73 sqM) Glucose (74-99) mg/dL Plasma Lactic Acid [place] 1.1 (0.7-2.0) mmol/L Calcium (8.4-10.2) mg/dL Total Bilirubin (0.2-1.3) mg/dL AST (14-36) U/L ALT (9-52) U/L Alkaline Phosphatase (38-126) U/L Total Protein (6.3-8.2) g/dL Albumin (3.5-5.0) g/dL Amylase (30-110) U/L Lipase (23-300) U/L Urine Color Urine Appearance (Clear) Urine pH (5.0-8.0) Ur Specific [place] (1.001-1.035) Urine Protein (Negative) Urine Glucose (UA) (Negative) Urine Ketones (Negative) Urine Blood (Negative) Urine Nitrite (Negative) Urine Bilirubin (Negative) Urine Urobilinogen (<2.0) mg/dL Ur Leukocyte Esterase (Negative) Urine RBC (0-5) /hpf Urine WBC (0-5) /hpf Ur Squamous Epith Cells (0-4) /hpf Urine Mucus (None) /hpf Urine HCG, Qual (Not Detectd) Disposition Clinical Impression: Fibroid uterus Disposition: HOME SELF-CARE Condition: Good Instructions: Ovarian Cyst (ED) Additional Instructions: Patient to adhere to previously discussed treatment plan and will take medication as directed. Patient to follow up with PCP in 1-2 days. Patient to return to ED if symptoms do not improve. Is patient prescribed a controlled substance at d/c from ED?: No Referrals: Linwood Patricia MD [Primary Care Provider] - 1-2 days Time of Disposition: 14:20
[2018-09-09 09:53] LABS: Basophils # (A) 0.1 k/uL (0-0.2); Basophils % (A) 1 %; Eosinophils # (A) 0.5 k/uL (0-0.7); Eosinophils % (A) 6 %; HCT 41.6 % (34.0-46.0); HGB 13.7 gm/dL (11.4-16.0); Lymphocytes % (A) 24 %; MCH 30.4 pg (25.0-35.0); MCV 92.2 fL (80.0-100.0); Mean Platelet Volume 7.1; Monocytes # (A) 0.4 k/uL (0-1.0); Monocytes % (A) 5 %; Neutrophils # (A) 5.1 k/uL (1.3-7.7); Neutrophils % (A) 63 %; Platelet Count 249 k/uL (150-450); RBC 4.52 m/uL (3.80-5.40); RDW 12.6 % (11.5-15.5); WBC 8.1 k/uL (3.8-10.6)
[2018-09-09 10:01] LABS: Appearance,Urine Cloudy (Clear); Bilirubin,Urine Negative (Negative); Blood,Urine Large (Negative); Color,Urine Yellow; Glucose,Urine (UA) Negative (Negative); Ketones,Urine Negative (Negative); Leukocyte Esterase,Urine Trace (Negative); Mucus,Urine Many /hpf; Nitrite,Urine Negative (Negative); PH, Urine 5.5 (5.0-8.0); Protein,Urine Trace (Negative); RBC,Urine 32 /hpf (0-5); Specific Gravity,Urine 1.024 (1.001-1.035); Squamous Epithelial Cell,Urine 14 /hpf (0-4); Urobilinogen,Urine <2.0 mg/dL (<2.0); WBC,Urine 4 /hpf (0-5)
[2018-09-09 10:02] LABS: ALT 15 U/L (9-52); AST 15 U/L (14-36); Albumin 4.3 g/dL (3.5-5.0); Alkaline Phosphatase 45 U/L (38-126); Amylase 81 U/L (30-110); Anion Gap 8 mmol/L; Blood Urea Nitrogen 9 mg/dL (7-17); Calcium 9.5 mg/dL (8.4-10.2); Carbon Dioxide 25 mmol/L (22-30); Chloride 108 mmol/L (98-107); Glucose 77 mg/dL (74-99); Lipase 200 U/L (23-300); Potassium 3.9 mmol/L (3.5-5.1); Sodium 141 mmol/L (137-145); Total Bilirubin 0.3 mg/dL (0.2-1.3); Total Protein 7.5 g/dL (6.3-8.2)
--- NOTE | 2018-09-09 11:09 | CT ---
EXAMINATION TYPE: CT abdomen pelvis w con DATE OF EXAM: 09/09/2018 REFERENCE: Previous study dated 02/11/2015. HISTORY: abdominal pain HISTORY: Cramping, pelvic pain CT DLP: 585.1 mGy Automated exposure control for dose reduction was used. TECHNIQUE: Helical acquisition through the abdomen and pelvis was obtained following the oral ingesti on of without Oral Contrast and following intravenous administration of 100 mL of Isovue 300. The evy a was reformatted in axial, coronal and sagittal projections. FINDINGS: Visualized portions of the lungs are clear. There is no pleural or pericardial fluid. The heart is not enlarged. Within the abdomen, the liver is enlarged measuring over 18 cm. The spleen and gallbladder are normal . Both adrenal glands are normal. There is a 6.4 mm hypoattenuating lesion in the lower pole of the left kidney. This likely represents a cyst. The kidneys are otherwise unremarkable. The pancreas is unremarkable. There is no significant retroperitoneal, iliac or inguinal adenopathy. The uterus is normal. There is follicular change in the left ovary. The right ovary appears normal. T here is prominence of the cervix. There is no significant diverticular change and there is no radiographic evidence of diverticulitis. The appendix is not visualized with certainty. Small bowel loops are normal in caliber. There is no free fluid and no free air. No bony lesion is seen. IMPRESSION: 1. MILD HEPATOMEGALY. 2. PROBABLE LEFT LOWER POLE RENAL CYST. 3. PROMINENCE OF THE CERVIX. TRACT VISUALIZATION WOULD BE SUGGESTED. 4. FAILURE TO VISUALIZE THE APPENDIX.
--- NOTE | 2018-09-09 13:27 | US ---
EXAMINATION TYPE: US transvaginal DATE OF EXAM: 09/09/2018 COMPARISON: Previous study dated 03/25/2015. CLINICAL HISTORY: Pain. TECHNIQUE: Transvaginal (TV). Date of LMP: 09/02/2018 EXAM MEASUREMENTS: Uterus: 7.9 x 4.2 x 4.9 cm Endometrial Stripe: 0.4 cm Right Ovary: 3.1 x 2.2 x 2.1 cm Left Ovary: 3.4 x 1.6x 1.6 cm Limited due to bowel gas and patient tolerance. 1. Uterus: Retroverted Hypoechoic area (0.5 x 0.4 x 0.6 cm) fundal uterus probable fibroid versus ot her etiology. Cystic area lateral to the endometrium (0.3 x 0.2 x 0.3 cm). Nabothian cysts seen large st one at cervix measured (0.6 x 0.6 x 0.6 cm). 2. Endometrium: wnl 3. Right Ovary: wnl 4. Left Ovary: wnl Spectral, color and waveform doppler imaging shows good arterial and venous flow within the ovaries ; there is no evidence for ovarian torsion. 5. Bilateral Adnexa: wnl 6. Posterior cul-de-sac: wnl IMPRESSION: 1. NABOTHIAN CYSTS. 2. PROBABLE FIBROID UTERUS.
[2018-09-09 14:42] VITALS: BP 132/72; PULSE 86; RESP 16; TEMP 98.1
== END 2018-09-09 14:30 | disposition home or self-care (01) ==
LOC: EC 08:33
DX: D25.9 Leiomyoma of uterus, unspecified (principal); F17.200 Nicotine dependence, unspecified, uncomplicated; Z87.42 Personal history of other diseases of the female genital tract; Z98.890 Other specified postprocedural states; Z80.0 Family history of malignant neoplasm of digestive organs
CPT/HCPCS: 99284; 96374; 96361; 36415; 80053; 82150; 83605; 83690; 85025; 81001; 81025; 93975; 76830; 74177; J1885; Q9967

== ENCOUNTER 2020-05-13 15:57 | Emergency (ER) | payer OTHER ==
[2020-05-13] MEDS ORDERED: SODIUM CHLORIDE 0.9% 1,000 ML IV STA (16:30)
--- NOTE | 2020-05-13 16:34 | ED ---
General Adult HPI - General Chief complaint: Nausea/Vomiting/Diarrhea Stated complaint: nausea/back pain Time Seen by Provider: 05/13/20 16:14 Source: patient, RN notes reviewed Mode of arrival: ambulatory Limitations: no limitations - History of Present Illness Initial comments: 39-year-old female presents to the emergency department for a chief complaint of nausea vomiting diarrhea. Patient states that for the past 3 days she has had diarrhea on and off all day. Denies bloody or mucousy stools. States she was not concerned because she has a history of IBS and has had similar symptoms before. However she signed of some back pain as well as abdominal pain. States is more upper abdomen. She is also having nausea and did start having an epis ode of vomiting yesterday night. She denies fevers or chills. Patient had a CAT scan 2 years ago that did not show any evidence of diverticular changes.Patient has no other complaints at this time including shortness of breath, chest pain, headache, or visual changes. - Related Data Previous Rx's Medication Instructions Recorded OLANZapine [ZyPREXA] 20 mg PO HS 30 Days tab 12/17/16 traZODone HCL [Desyrel] 100 mg PO HS 30 Days tab 12/17/16 Ondansetron [Zofran ODT] 4 mg PO Q8HR PRN #15 tab 05/13/20 Allergies Allergy/AdvReac Type Severity Reaction Status Date / Time No Known Allergies Allergy Verified 05/13/20 16:05 Review of Systems ROS Statement: Those systems with pertinent positive or pertinent negative responses have been documented in the HPI. ROS Other: All systems not noted in ROS Statement are negative. Past Medical History Past Medical History: No Reported History Additional Past Medical History / Comment(s): cervical cysts, seasonal ALLERGIES History of Any Multi-Drug Resistant Organisms: None Reported Past Surgical History: Hernia Repair Additional Past Surgical History / Comment(s): CERVICAL CYSTS REMOVED, Past Psychological History: Depression Smoking Status: Current every day smoker Past Alcohol Use History: None Reported Past Drug Use History: None Reported - Past Family History Father Additional Family Medical History / Comment(s): Patient's father from pancreatic cancer. Mother Additional Family Medical History / Comment(s): Mother has but patient does not know any details of this. Brother(s) Additional Family Medical History / Comment(s): Patient has 1 brother with no major medical problems. Sister(s) Additional Family Medical History / Comment(s): Patient has one sister that is living. One sister as a baby. Daughter(s) Additional Family Medical History / Comment(s): Patient has one 10-year-old daughter with no major medical problems. General Exam Limitations: no limitations General appearance: alert, in no apparent distress Head exam: Present: atraumatic, normocephalic, normal inspection Eye exam: Present: normal appearance, PERRL, EOMI. Absent: scleral icterus, conjunctival injection, periorbital swelling ENT exam: Present: normal exam, mucous membranes moist Neck exam: Present: normal inspection, full ROM. Absent: tenderness, meningismus, lymphadenopathy Respiratory exam: Present: normal lung sounds bilaterally. Absent: respiratory distress, wheezes, rales, rhonchi, stridor Cardiovascular Exam: Present: regular rate, normal rhythm, normal heart sounds. Absent: systolic murmur, diastolic murmur, rubs, gallop, clicks GI/Abdominal exam: Present: soft, tenderness (minimal generalized abdominal te nderness), normal bowel sounds. Absent: distended, guarding, rebound, rigid Neurological exam: Present: alert Course Vital Signs 05/13/20 05/13/20 16:01 18:39 Temperature 98.4 F 98 F Pulse Rate 111 H 86 Respiratory 18 16 Rate Blood Pressure 144/103 143/99 O2 Sat by Pulse 98 98 Oximetry Medical Decision Making - Medical Decision Making Vitals are stable. Patient initially tachycardic likely because of pain. CBC is unremarkable. CMP is unremarkable. Amylase and lipase are normal. Urinalysis does show 15 red blood cells. Given patient denies flank pain CT was ordered. CT abdomen and pelvis showed no adverse change compared to Old exam. No renal stone or obstruction. Patient will follow up with primary care for hematuria as she is not on her menstrual period. Patient states she has actually had these symptoms on and off for quite some time now. States she is to see a GI doctor but no longer does. Patient thinks better after medications. She is requesting work note. Patient will be discharged home with GI referral and follow-up with primary care. She will take Zofran as needed for nausea. She will return here for any worsening symptoms. - Lab Data Result diagrams: 05/13/20 16:47 05/13/20 16:47 Lab Results 05/13/20 05/13/20 05/13/20 Range/Units 16:47 16:47 16:47 WBC 12.1 H (3.8-10.6) k/uL RBC 4.69 (3.80-5.40) m/uL Hgb 14.0 (11.4-16.0) gm/dL Hct 43.3 (34.0-46.0) % MCV 92.2 (80.0-100.0) fL MCH 29.9 (25.0-35.0) pg MCHC 32.4 (31.0-37.0) g/dL RDW 12.4 (11.5-15.5) % Plt Count 275 (150-450) k/uL Neutrophils % 70 % Lymphocytes % 20 % Monocytes % 6 % Eosinophils % 3 % Basophils % 1 % Neutrophils # 8.4 H (1.3-7.7) k/uL Lymphocytes # 2.4 (1.0-4.8) k/uL Monocytes # 0.7 (0-1.0) k/uL Eosinophils # 0.4 (0-0.7) k/uL Basophils # 0.1 (0-0.2) k/uL Sodium 139 (137-145) mmol/L Potassium 3.8 (3.5-5.1) mmol/L Chloride 105 (98-107) mmol/L Carbon Dioxide 26 (22-30) mmol/L Anion Gap 8 mmol/L BUN 8 (7-17) mg/dL Creatinine 0.61 (0.52-1.04) mg/dL Est GFR (CKD-EPI)AfAm >90 (>60 ml/min/1.73 sqM) Est GFR (CKD-EPI)NonAf >90 (>60 ml/min/1.73 sqM) Glucose 78 (74-99) mg/dL Calcium 10.0 (8.4-10.2) mg/dL Total Bilirubin 0.4 (0.2-1.3) mg/dL AST 19 (14-36) U/L ALT 13 (4-34) U/L Alkaline Phosphatase 51 (38-126) U/L Total Protein 7.7 (6.3-8.2) g/dL Albumin 4.8 (3.5-5.0) g/dL Amylase 67 (30-110) U/L Lipase 184 (23-300) U/L Urine Color Yellow Urine Appearance Clear (Clear) Urine pH 6.0 (5.0-8.0) Ur Specific [place] 1.024 (1.001-1.035) Urine Protein Trace H (Negative) Urine Glucose (UA) Negative (Negative) Urine Ketones Negative (Negative) Urine Blood Moderate H (Negative) Urine Nitrite Negative (Negative) Urine Bilirubin Negative (Negative) Urine Urobilinogen 2.0 (<2.0) mg/dL Ur Leukocyte Esterase Negative (Negative) Urine RBC 15 H (0-5) /hpf Urine WBC 2 (0-5) /hpf Ur Squamous Epith Cells 2 (0-4) /hpf Urine Mucus Many H (None) /hpf Urine HCG, Qual (Not Detectd) 05/13/20 Range/Units 16:47 WBC (3.8-10.6) k/uL RBC (3.80-5.40) m/uL Hgb (11.4-16.0) gm/dL Hct (34.0-46.0) % MCV (80.0-100.0) fL MCH (25.0-35.0) pg MCHC (31.0-37.0) g/dL RDW (11.5-15.5) % Plt Count (150-450) k/uL Neutrophils % % Lymphocytes % % Monocytes % % Eosinophils % % Basophils % % Neutrophils # (1.3-7.7) k/uL Lymphocytes # (1.0-4.8) k/uL Monocytes # (0-1.0) k/uL Eosinophils # (0-0.7) k/uL Basophils # (0-0.2) k/uL Sodium (137-145) mmol/L Potassium (3.5-5.1) mmol/L Chloride (98-107) mmol/L Carbon Dioxide (22-30) mmol/L Anion Gap mmol/L BUN (7-17) mg/dL Creatinine (0.52-1.04) mg/dL Est GFR (CKD-EPI)AfAm (>60 ml/min/1.73 sqM) Est GFR (CKD-EPI)NonAf (>60 ml/min/1.73 sqM) Glucose (74-99) mg/dL Calcium (8.4-10.2) mg/dL Total Bilirubin (0.2-1.3) mg/dL AST (14-36) U/L ALT (4-34) U/L Alkaline Phosphatase (38-126) U/L Total Protein (6.3-8.2) g/dL Albumin (3.5-5.0) g/dL Amylase (30-110) U/L Lipase (23-300) U/L Urine Color Urine Appearance (Clear) Urine pH (5.0-8.0) Ur Specific [place] (1.001-1.035) Urine Protein (Negative) Urine Glucose (UA) (Negative) Urine Ketones (Negative) Urine Blood (Negative) Urine Nitrite (Negative) Urine Bilirubin (Negative) Urine Urobilinogen (<2.0) mg/dL Ur Leukocyte Esterase (Negative) Urine RBC (0-5) /hpf Urine WBC (0-5) /hpf Ur Squamous Epith Cells (0-4) /hpf Urine Mucus (None) /hpf Urine HCG, Qual Not Detected (Not Detectd) Disposition Clinical Impression: Nausea vomiting and diarrhea, Hematuria Disposition: HOME SELF-CARE Condition: Good Instructions (If sedation given, give patient instructions): Acute Nausea and Vomiting (ED), Acute Diarrhea (ED) Additional Instructions: Please take Zofran as needed for nausea. Please follow up with GI in 1-2 days. Return here to the emergency room for any worsening symptoms. Prescriptions: Ondansetron [Zofran ODT] 4 mg PO Q8HR PRN #15 tab PRN Reason: Nausea Is patient prescribed a controlled substance at d/c from ED?: No Referrals: None,Stated [Primary Care Provider] - 1-2 days Stormy Prather MD [STAFF PHYSICIAN] - 1-2 days Time of Disposition: 18:35
[2020-05-13 17:01] LABS: Basophils # (A) 0.1 k/uL (0-0.2); Basophils % (A) 1 %; Eosinophils # (A) 0.4 k/uL (0-0.7); Eosinophils % (A) 3 %; HCT 43.3 % (34.0-46.0); Lymphocytes # (A) 2.4 k/uL (1.0-4.8); Lymphocytes % (A) 20 %; MCH 29.9 pg (25.0-35.0); MCHC 32.4 g/dL (31.0-37.0); MCV 92.2 fL (80.0-100.0); Mean Platelet Volume 7.6; Monocytes # (A) 0.7 k/uL (0-1.0); Monocytes % (A) 6 %; Neutrophils # (A) 8.4 k/uL (1.3-7.7); Neutrophils % (A) 70 %; Platelet Count 275 k/uL (150-450); RBC 4.69 m/uL (3.80-5.40); RDW 12.4 % (11.5-15.5); WBC 12.1 k/uL (3.8-10.6)
[2020-05-13 17:09] LABS: ALT 13 U/L (4-34); AST 19 U/L (14-36); African American GFR (CKD) >90 (>60 ml/min/1.73 sqM); Albumin 4.8 g/dL (3.5-5.0); Alkaline Phosphatase 51 U/L (38-126); Amylase 67 U/L (30-110); Anion Gap 8 mmol/L; Blood Urea Nitrogen 8 mg/dL (7-17); Carbon Dioxide 26 mmol/L (22-30); Chloride 105 mmol/L (98-107); Glucose 78 mg/dL (74-99); Non-African American GFR(CKD) >90 (>60 ml/min/1.73 sqM); Potassium 3.8 mmol/L (3.5-5.1); Sodium 139 mmol/L (137-145); Total Bilirubin 0.4 mg/dL (0.2-1.3); Total Protein 7.7 g/dL (6.3-8.2)
[2020-05-13 17:10] LABS: Appearance,Urine Clear (Clear); Bilirubin,Urine Negative (Negative); Blood,Urine Moderate (Negative); Color,Urine Yellow; Glucose,Urine (UA) Negative (Negative); Ketones,Urine Negative (Negative); Leukocyte Esterase,Urine Negative (Negative); Mucus,Urine Many /hpf; Nitrite,Urine Negative (Negative); Protein,Urine Trace (Negative); RBC,Urine 15 /hpf (0-5); Specific Gravity,Urine 1.024 (1.001-1.035); Squamous Epithelial Cell,Urine 2 /hpf (0-4); WBC,Urine 2 /hpf (0-5)
[2020-05-13] MEDS ORDERED: KETOROLAC 30 MG/ML 1 ML VIAL IVP STA (17:21)
[2020-05-13] MEDS ORDERED: ONDANSETRON 4 MG/2 ML VIAL IVP STA (17:21)
--- NOTE | 2020-05-13 17:53 | CT ---
EXAMINATION TYPE: CT abdomen pelvis wo con DATE OF EXAM: 05/13/2020 COMPARISON: 09/09/2018 HISTORY: flank pain, vomiting CT DLP: 422.3 mGycm Automated exposure control for dose reduction was used. Exam performed from the diaphragm to the floor the pelvis with no contrast. Lung bases are clear. There is no pleural effusion. Heart size is normal. Liver spleen stomach pancreas gallbladder appear normal. Bile ducts are not dilated. There is no adrenal mass. Kidneys have normal size and contour. There is no hydronephrosis. Ureters a re not dilated. There is no retroperitoneal adenopathy. There is no perinephric edema. Bladder distends smoothly. There is no inguinal hernia. Uterus is retroverted. There is no free fluid in the pelvis. There is no sign of a pelvic mass. There is 1.8 cm cyst on the left ovary. Appendix i s inferior and appears normal. There is no ascites. There is no free air. There is no sign of a bowel obstruction. There is no mesenteric edema. Lumbar vertebra have normal spacing and alignment. Posterior elements are intact. Bony pelvis appears intact. IMPRESSION: Negative CT scan abdomen and pelvis. No adverse change compared to old exam. Normal appendix. No rand l stone or obstruction.
[2020-05-13 18:40] VITALS: BP 143/99; PULSE 86; RESP 16; TEMP 98
== END 2020-05-13 18:45 | disposition home or self-care (01) ==
LOC: EC 15:57
DX: R11.2 Nausea with vomiting, unspecified (principal); F17.200 Nicotine dependence, unspecified, uncomplicated; R00.0 Tachycardia, unspecified; M54.9 Dorsalgia, unspecified; R19.7 Diarrhea, unspecified; R31.9 Hematuria, unspecified
CPT/HCPCS: 36415; 80053; 82150; 83690; 85025; 81001; 81025; 74176; 99284; 96374; 96375; 96361; J2405; J1885

== ENCOUNTER → 2020-06-12 | Outpatient (CLI) | payer OTHER ==
--- NOTE | 2020-06-13 09:00 | NM ---
EXAMINATION TYPE: NM hepatobiliary w EF DATE OF EXAM: 06/12/2020 COMPARISON: NONE HISTORY: Abdominal pain. TECHNIQUE: After the intravenous administration of 4.7 mCi Tc 99m Mebrofenin hepatobiliary scintigrap hy is performed. Immediate images post injection. FINDINGS: There is satisfactory initial accumulation of tracer by the liver. The gallbladder is visualized wit hin 5 minutes. The small bowel activity is noted within 15 minutes. At one hour 8 ounces of oral en sure plus is given to mimic CCK and gallbladder ejection fraction is calculated at 65 %, in the garry l range. Therefore there is no scintigraphic evidence of cystic or common bile duct obstruction to s uggest acute cholecystitis or gallbladder dyskinesia. IMPRESSION: Exam is within normal limits.
== END | disposition home or self-care (01) ==
LOC: RADNMMAIN 14:48
PROVIDERS: ATTEND Internal Medicine Geriatric Medicine
DX: R10.9 Unspecified abdominal pain (principal)
CPT/HCPCS: 78226; A9537

== ENCOUNTER → 2020-06-30 | Outpatient (CLI) | payer OTHER ==
[2020-06-30 23:38] LABS: African American GFR (CKD) 109.2 (60.0-200.0); Non-African American GFR(CKD) 94.2 (60.0-200.0)
== END | disposition home or self-care (01) ==
LOC: LABWHC1 13:42
PROVIDERS: ATTEND Internal Medicine
DX: Z11.59 Encounter for screening for other viral diseases (principal)
CPT/HCPCS: 82565; 36415; U0003

== ENCOUNTER 2021-09-01 18:39 | Emergency (ER) | payer OTHER ==
[2021-09-01 19:05] VITALS: BP 185/109; PULSE 98; RESP 18; TEMP 97.9
--- NOTE | 2021-09-01 20:10 | ED ---
ENT HPI - General Chief complaint: Dental/Oral Stated complaint: [facility] facial injury Time Seen by Provider: 09/01/21 19:53 Source: patient Mode of arrival: ambulatory Limitations: no limitations - History of Present Illness Initial comments: 41-year-old female patient presents to the emergency department today for evaluation of dental injury. Patient states that she was at work when a client's dog hit her on the chin causing the packing from her tooth to follow- up. States she initially had some discomfort but did take Tylenol which resolved all pain. She denies any current pain swelling or bleeding from the area. States she does still have packing in place. States she does have an appointment with the dentist tomorrow. Her work required her to come in for evaluation. - Related Data Previous Rx's Medication Instructions Recorded OLANZapine [ZyPREXA] 20 mg PO HS 30 Days tab 12/17/16 traZODone HCL [Desyrel] 100 mg PO HS 30 Days tab 12/17/16 Ondansetron [Zofran ODT] 4 mg PO Q8HR PRN #15 tab 05/13/20 Allergies Allergy/AdvReac Type Severity Reaction Status Date / Time Penicillins Allergy Anaphylaxis Verified 09/01/21 19:05 Review of Systems ROS Statement: Those systems with pertinent positive or pertinent negative responses have been documented in the HPI. ROS Other: All systems not noted in ROS Statement are negative. Past Medical History Past Medical History: No Reported History Additional Past Medical History / Comment(s): cervical cysts, seasonal ALLERGIES History of Any Multi-Drug Resistant Organisms: None Reported Past Surgical History: Hernia Repair Additional Past Surgical History / Comment(s): CERVICAL CYSTS REMOVED, Past Psychological History: Depression Smoking Status: Current every day smoker Past Alcohol Use History: None Reported Past Drug Use History: None Reported - Past Family History Father Additional Family Medical History / Comment(s): Patient's father from pancreatic cancer. Mother Additional Family Medical History / Comment(s): Mother has but patient does not know any details of this. Brother(s) Additional Family Medical History / Comment(s): Patient has 1 brother with no major medical problems. Sister(s) Additional Family Medical History / Comment(s): Patient has one sister that is living. One sister as a baby. Daughter(s) Additional Family Medical History / Comment(s): Patient has one 10-year-old daughter with no major medical problems. General Exam Limitations: no limitations General appearance: alert, in no apparent distress ENT exam: Present: mucous membranes moist, other (Fractured tooth #3, dental packing is in place. No stranding gingival erythema or hyperplasia.) Respiratory exam: Present: normal lung sounds bilaterally. Absent: respiratory distress, wheezes, rales, rhonchi, stridor Cardiovascular Exam: Present: regular rate, normal rhythm, normal heart sounds. Absent: systolic murmur, diastolic murmur, rubs, gallop, clicks Neurological exam: Present: alert, oriented X3, CN II-XII intact Psychiatric exam: Present: normal affect, normal mood Skin exam: Present: warm, dry, intact, normal color. Absent: rash Course Vital Signs 09/01/21 19:00 Temperature 97.9 F Pulse Rate 98 Respiratory 18 Rate Blood Pressure 185/109 O2 Sat by Pulse 99 Oximetry Medical Decision Making - Medical Decision Making 41-year-old female patient presented to the emergency department today for evaluation after some of her temporary filling fell out of her tooth. Physical examination did reveal possible fracture to the tooth, there is some filling left in place. She does have an appointment with her dentist tomorrow. She is required to come in by her job however she states she feels fine. She will be discharged to follow-up as she has planned. Return parameters were discussed in detail. She verbalizes understanding and agrees with this plan. My attending is Dr. Guadalupe. Disposition Clinical Impression: Dental injury Disposition: HOME SELF-CARE Condition: Good Instructions (If sedation given, give patient instructions): Acute Dental Trauma (ED) Additional Instructions: Follow-up with dentist tomorrow as you have planned. Return to the emergency department for any new, worsening, or concerning symptoms. Is patient prescribed a controlled substance at d/c from ED?: No Referrals: Linwood Guillaume MD [Primary Care Provider] - 1-2 days Time of Disposition: 20:10
== END 2021-09-01 20:16 | disposition home or self-care (01) ==
LOC: EC 18:39
DX: S00.502A Unspecified superficial injury of oral cavity, initial encounter (principal); F32.9 Major depressive disorder, single episode, unspecified; F17.200 Nicotine dependence, unspecified, uncomplicated; Z88.0 Allergy status to penicillin; W54.1XXA Struck by dog, initial encounter
CPT/HCPCS: 99283

== ENCOUNTER → 2025-02-14 | Outpatient (CLI) | payer OTHER ==
--- NOTE | 2025-02-14 15:51 | XR ---
EXAMINATION TYPE: XR ankle complete RT DATE OF EXAM: 02/14/2025 3:38 PM COMPARISON: None CLINICAL INDICATION: Female, 44 years old with history of S63.501A S93.401A S80.01XA; PHH, pain TECHNIQUE: XR ankle complete RT; frontal, lateral and oblique projections. FINDINGS: There is no evidence of acute osseous pathology. No evidence of subluxation or dislocation. Kager's fat pad is intact. Mild soft tissue swelling around the ankle. No radiopaque foreign bodies are ident ified. IMPRESSION: 1. No evidence of acute fracture. 2. Subcutaneous swelling around the ankle likely secondary to underlying soft tissue injury. [facility], , 02/14/2025 3:49 PM
--- NOTE | 2025-02-14 15:53 | XR ---
EXAMINATION TYPE: XR wrist complete RT DATE OF EXAM: 02/14/2025 3:38 PM COMPARISON: None CLINICAL INDICATION: Female, 44 years old with history of S63.501A S93.401A S80.01XA; PHH, pain TECHNIQUE: XR wrist complete RT; examined in the Frontal, navicular, lateral, and oblique. FINDINGS: No acute osseous pathology, joint dislocation, or joint effusion. No evidence of any soft tissue swelling is seen. IMPRESSION: No acute osseous pathology. [facility], , 02/14/2025 3:51 PM
--- NOTE | 2025-02-14 15:56 | XR ---
EXAMINATION TYPE: XR knee complete RT DATE OF EXAM: 02/14/2025 3:38 PM COMPARISON: None CLINICAL INDICATION: Female, 44 years old with history of S63.501A S93.401A S80.01XA; PHH, pain TECHNIQUE: XR knee complete RT 3 views submitted. FINDINGS: No evidence of any acute osseous pathology, soft tissue swelling, or joint effusion is no nate. Tricompartmental osteophyte formation involving the femoral condyles, tibial plateau and patella . Mild joint space narrowing. A fabella is present. IMPRESSION: 1. No acute osseous pathology. 2. Mild tricompartmental osteoarthritic changes. [facility], , 02/14/2025 3:53 PM
== END | disposition home or self-care (01) ==
LOC: RADXRMAIN 14:59
PROVIDERS: ATTEND Emergency Medicine
DX: S63.501A Unspecified sprain of right wrist, initial encounter (principal); S93.401A Sprain of unspecified ligament of right ankle, initial encounter; S80.01XA Contusion of right knee, initial encounter; M25.473 Effusion, unspecified ankle; M17.11 Unilateral primary osteoarthritis, right knee

== ENCOUNTER → 2025-02-22 | Outpatient (CLI) | payer OTHER ==
--- NOTE | 2025-02-22 16:16 | XR ---
EXAMINATION TYPE: XR forearm RT, XR wrist complete RT DATE OF EXAM: 02/22/2025 4:10 PM COMPARISON: None CLINICAL INDICATION: Female, 44 years old with history of S63.501D Sprain r wrist S80.01XD Contusion rt knee; PHH, pain TECHNIQUE: XR forearm RT, XR wrist complete RT; forearm was examined in AP and lateral projections. 3 views of the wrist. FINDINGS: No acute osseous pathology, soft tissue swelling or joint dislocations are seen. IMPRESSION: No evidence of acute fracture. [facility], , 02/22/2025 4:14 PM
--- NOTE | 2025-02-22 16:17 | XR ---
EXAMINATION TYPE: XR knee complete RT DATE OF EXAM: 02/22/2025 4:10 PM COMPARISON: None CLINICAL INDICATION: Female, 44 years old with history of S63.501D Sprain r wrist S80.01XD Contusion rt knee; PHH, pain TECHNIQUE: XR knee complete RT 3 views submitted. FINDINGS: No evidence of any acute osseous pathology, soft tissue swelling, or joint effusion is no nate. Tricompartmental osteophyte formation involving the femoral condyles, tibial plateau and patella . Mild joint space narrowing. A fabella is present. IMPRESSION: 1. No acute osseous pathology. 2. Mild tricompartmental osteoarthritic changes. [facility], , 02/22/2025 4:15 PM
== END | disposition home or self-care (01) ==
LOC: RADXRMAIN 15:30
PROVIDERS: ATTEND Emergency Medicine
DX: S63.501D Unspecified sprain of right wrist, subsequent encounter (principal); S80.01XD Contusion of right knee, subsequent encounter; M17.11 Unilateral primary osteoarthritis, right knee; X58.XXXD Exposure to other specified factors, subsequent encounter